=== PATIENT | male | born 1995 | race Two or more races ===

== ENCOUNTER 2024-04-18 14:34 | Emergency (ER) | payer OTHER ==
[~2024-04-18] VITALS: Ht 188 cm; Wt 90.9 kg
[2024-04-18] MEDS: ONDANSETRON HCL 4 MG/2 ML VIAL IM ONE (15:35)
[2024-04-18] MEDS: HYDROmorphone HCL 2 MG/ML VL/or syr IM ONE (15:36)
[2024-04-18 16:04] LABS: Basophils # (auto) 0 10 ^3/uL (0-0.2); Basophils % (auto) 0.2 % (0.0-2.0); Eosinophils # (auto) 0 10 ^3/uL (0-0.8); Hematocrit 46.5 % (41.0-53.0); Hemoglobin 15.9 g/dL (13.5-17.5); Lymphocytes # (auto) 1.1 10 ^3/uL (0.4-5.4); Lymphocytes % (auto) 6.4 % (10.0-50.0); Mean Corpuscular Hemoglobin 30.6 pg (28.0-32.0); Mean Corpuscular Hgb Conc. 34.2 g/dL (32.0-36.0); Mean Corpuscular Volume 89.5 fL (80.0-100.0); Monocytes # (auto) 0.7 10 ^3/uL (0-1.3); Monocytes % (auto) 4.1 % (0.0-12.0); Neutrophils # (auto) 15.8 10 ^3/uL (1.6-8.6); Neutrophils % (auto) 89.3 % (37.0-80.0); Red Cell Distribution Width 12.7 % (11.8-14.3); White Blood Cell 17.8 10^3/uL (4.4-10.8)
[2024-04-18 16:20] LABS: Alanine Aminotransferase 28 U/L (7-40); Albumin 4.8 g/dL (3.2-4.8); Alkaline Phosphatase 90 U/L (46-116); Anion Gap 8 (5-15); Aspartate Aminotransferase 16 U/L (13-40); BUN/Creatinine Ratio 7.9 (10.0-20.0); Bilirubin, Total 1.4 mg/dL (0.2-1.0); Blood Urea Nitrogen 6 mg/dL (9-23); Calcium 10.7 mg/dL (8.7-10.4); Carbon Dioxide 22 mmol/L (20-30); Chloride 109 mmol/L (98-107); Glucose 123 mg/dL (74-106); Lipase 26 U/L (12-53); Potassium 3.6 mmol/L (3.5-5.1); Sodium 139 mmol/L (136-145); Total Protein 7.7 g/dL (5.7-8.2)
[2024-04-18 16:23] LABS: Lactic Acid w/Reflex 2.1 mmol/L (0.4-2.0)
[2024-04-18] MEDS: SODIUM CHLORIDE 0.9% 1,000 ML IV ONE (17:16)
[2024-04-18 19:44] LABS: Urine Bacteria None Seen /hpf (None Seen)
[2024-04-18 19:50] VITALS: PULSE 69; RESP 13; O2SAT 100
[2024-04-18 20:16] LABS: Amphetamine Screen, Urine Neg (NEGATIVE); Barbiturate Scree,Urine Neg (NEGATIVE); Benzodiazephine Screen, Urine Neg (NEGATIVE); Cannabinoid Screen, Urine Pos (NEGATIVE); Cocaine Screen, Urine Neg (NEGATIVE); Opiate Scree,Urine Neg (NEGATIVE); Phencyclidine Screen, Urine Neg (NEGATIVE)
[2024-04-18 20:33] LABS: Urine Blood Negative /uL (Negative); Urine Clarity Clear (Clear); Urine Color Yellow (Yellow); Urine Mucus FEW (None Seen); Urine Protein, UAD 1+ (Negative); Urine Specific Gravity 1.034 (1.001-1.035); Urine Urobilinogen Normal (Negative); Urine WBC 2 /hpf (0 - 3)
[2024-04-18] MEDS: PIPERACILLIN-TAZOB 3.375GM 100 ML IV ONE (20:34)
[2024-04-18] MEDS: HYDROmorphone HCL 2 MG/ML VL/or syr IV ONE (21:14)
[2024-04-18 21:19] VITALS: BP 121/69; PULSE 81; RESP 13; TEMP 97.7; O2SAT 96
== END 2024-04-18 21:30 | disposition admitted as inpatient to this hospital (09) ==
LOC: ER 14:34
DX: K35.80 Unspecified acute appendicitis (principal)
CPT/HCPCS: 36415; 74176; 80053; 80307; 81001; 83605; 83690; 84484; 85025; 96361; 96365; 96372; 96375; 99285; J1170; J2405; J2543; J7030; 96374